=== PATIENT | female | born 1965 | race Caucasian/White ===

== ENCOUNTER 2024-02-07 06:49 | Day surgery (SDC) | payer OTHER ==
[2024-02-07] MEDS: Lactated Ringers 1,000 ML IV SCH (07:15)
[2024-02-07] MEDS ORDERED: fentaNYL 50 MCG/ML SDV ONE (07:25)
[2024-02-07] MEDS ORDERED: Propofol 200 MG/20 ML SDV ONE (07:25)
[2024-02-07] MEDS ORDERED: Ketamine 200 MG/20 ML MDV ONE (07:25)
[2024-02-07 08:43] VITALS: BP 136/69; PULSE 68
== END 2024-02-07 08:52 | disposition home or self-care (01) ==
LOC: CC.SDS 06:49
PROVIDERS: ATTEND Family Medicine
DX: D12.3 Benign neoplasm of transverse colon (principal); K57.30 Diverticulosis of large intestine without perforation or abscess without bleeding; I10 Essential (primary) hypertension; K21.9 Gastro-esophageal reflux disease without esophagitis; E11.9 Type 2 diabetes mellitus without complications; E03.9 Hypothyroidism, unspecified; E78.5 Hyperlipidemia, unspecified; Z79.890 Hormone replacement therapy; Z79.84 Long term (current) use of oral hypoglycemic drugs; Z79.899 Other long term (current) drug therapy
CPT/HCPCS: 00811; J2704; J3010; J3490; J7120